=== PATIENT | male | born 2000 | race Caucasian/White ===

== ENCOUNTER 2019-09-30 23:29 | Inpatient (IN) ==
--- NOTE | 2019-09-30 23:36 | Emergency Department Note ---
ED Provider Note NAME: QUITA LIU AGE: 19 SEX: M ARRIVES VIA: [employer] INFORMANT: [Patient] ED PROVIDER(S): [Isabel Pfeiffer DO] CHIEF COMPLAINT: [Suicidal ideation with a plan to shoot himself] IMPRESSION: [Suicidal ideation] PLAN: Disposition: [Admitted voluntarily to 3 S.] Condition: [Good] Referral: [For admission to inpatient psychiatric care-3 S.] MEDICAL DECISION MAKING: The patient presents to the emergency department after making suicidal statements with a gesture that he was going to shoot himself. The patient had been drinking alcohol tonight. He was felt to medically cleared. He was evaluated by the ED psychiatric caser shoe parts. Triage Nursing notes reviewed and agree them. The police who petitioned a [phone]. [Prior medical records reviewed] Vital Signs: Were unremarkable Differential diagnosis: Alcohol intoxication, mood disorder, thought disorder, suicidal ideation, ER treatment provided: Medical clearance; evaluation and treatment for psychiatric care Diagnostics interpreted by me: ECG: [none] Cardiac Monitoring: [none] Laboratory studies: [See below] Imaging studies: [None] Consultation(s): ED psychiatric caser shoe parts HPI: This is a 19-year-old male patient who made suicidal threats tonight to friends stating that he was going to shoot himself. He sent text messages to friends of pictures of a gun. Police were contacted and they went to the patient's home. He admitted that he was suicidal and that he had plans to use his friend's 22 to shoot himself in the mouth. He was very depressed over the fact that his grandfather last night in his sleep from cardiac arrest. The patient explained to me that he was already depressed yesterday after visiting his other grandfather's grave. ROS: See above HPI for pertinent positives & negatives. A total of [10] systems reviewed and were otherwise negative. PAST MEDICAL HISTORY:He has a past medical history of inguinal hernia that has not yet been repaired SOCIAL HISTORY:Patient lives with roommates. He is a [place] but is currently unemployed. He does smoke tobacco. He does drink beer. HOME MEDICATIONS:[None] ALLERGIES:[None] VITALS:[See Below] PHYSICAL EXAMINATION: HEENT: Head - normocephalic and atraumatic Pupils are equal, round, and reactive to light. Extraocular eye muscles are intact, and sclera are anicteric. Nose - moist nasal mucosa without discharge. Mouth - moist buccal mucosa. Oropharynx is nonerythematous and there is no tonsillar exudate or edema noted. Neck: Supple; no JVD, nuchal rigidity, cervical lymphadenopathy, or auscultated bruits. Heart: Regular rate and rhythm. There is a normal S1 and S2 with no murmurs, clicks, or gallops appreciated. Lungs: Clear to auscultation bilaterally with no wheezes, rales, or rhonchi. Abdomen: Soft, completely nontender, nondistended, with good bowel sounds. There are no palpable pulsatile masses or hepatosplenomegaly. There is no guarding, rigidity, or rebound noted. Extremities: No evidence of cyanosis, clubbing, or edema. There are easily palpable peripheral pulses. Skin: warm and dry with good turgor and no rashes. Psych: Normal affect; the patient denies any history of depression but states that he feels depressed now and admits to feeling suicidal. ED COURSE: Times/Reassessments: The patient was evaluated in room A 8. A complete history and physical was performed. Labs were drawn as above. 1:00 the patient was felt to be medically cleared at this time. He was evaluated by the ED psychiatric caser shoe parts 1:35 I spoke with the patient and reviewed his laboratory studies. I discussed the case with the ED psychiatric caser shoe parts and the patient is willing to sign himself in voluntarily. A referral was made to 3 S. Impression & Plan Suicidal ideation Past Med/Surg History Social History (Updated 07/02/19 @ 11:53 by Chelle Amaya RN) Preferred Language: Portuguese Communication Ability: Effective Practice Architect Required: No Beliefs That Will Affect Care: None marital status: Single Current Living Situation: Other Current Living Situation Comment: with friends Feels Safe at Home: Yes Smoking Status: Current every day smoker Tobacco Type: cigarettes ; Cigarettes Per Day: vapes daily ; Second Hand Exposure: Yes ; Hx Alcohol Use: Yes Alcohol type: beer Hx Substance Use: No Results & Data Vital Signs Vital Signs - 24 hr 09/30/19 23:30 Temperature 36.6 C Temperature Source Oral Pulse Rate 112 H Respiratory Rate 16 Respiratory Effort / Characteristics Non-Labored Spontaneous Respiratory Depth Normal Blood Pressure 138/93 Blood Pressure Mean 108 Pulse Oximetry 98 Oxygen Delivery Method Room Air Sepsis Recent Fever Within 48 Hours No Sepsis New/Unexplained Change in Mental Status No Sepsis Action Taken by Nursing No Action Required Laboratory Data Result diagrams: 10/01/19 00:05 10/01/19 00:05 Lab Results 09/30/19 09/30/19 10/01/19 Range/Units 23:35 23:35 00:05 WBC 8.66 (4.8-10.8) K/uL RBC 5.00 (4.7-6.1) M/uL Hgb 15.3 (14.0-18.0) g/dL Hct 43.9 (42-52) % MCV 87.8 (80-100) fL MCH 30.6 (25-34) pg MCHC 34.9 (32-36) g/dL RDW Std Deviation 41.1 (36.4-46.3) fL RDW Coeff of Gala 12.9 (11.5-14.5) % Plt Count 354 (130-400) K/uL MPV 9.0 (7.4-10.4) fL Immature Gran % (Auto) 0.2 % Neut % (Auto) 64.8 % Lymph % (Auto) 27.3 % [place] % (Auto) 6.5 % Eos % (Auto) 0.9 % Baso % (Auto) 0.3 % Immature Gran # (Auto) 0.02 (0.00-0.02) K/uL Neut # (Auto) 5.61 (1.4-6.5) K/uL Lymph # (Auto) 2.36 (1.2-3.4) K/uL [place] # (Auto) 0.56 (0.11-0.59) K/uL Eos # (Auto) 0.08 (0-0.5) K/uL Baso # (Auto) 0.03 (0-0.2) K/uL Sodium (136-145) mmol/L Potassium (3.5-5.1) mmol/L Chloride (98-107) mmol/L Carbon Dioxide (21-32) mmol/L Anion Gap (3-11) BUN (7-18) mg/dl Creatinine (0.6-1.4) mg/dl Est Cr Clr Drug Dosing Est GFR ( Amer) Est GFR (Non-Af Amer) BUN/Creatinine Ratio (10-20) Glucose (70-99) mg/dl Calcium (8.5-10.1) mg/dl Total Bilirubin (0.2-1) mg/dl AST (15-37) U/L ALT (12-78) U/L Alkaline Phosphatase (45-117) U/L Total Protein (6.4-8.2) gm/dl Albumin (3.4-5.0) gm/dl Globulin (2.5-4.0) gm/dl Albumin/Globulin Ratio (0.9-2) TSH (0.300-4.500) uIu/ml Urine Color Yellow Urine Appearance Clear (Clear) Urine pH 6.5 (4.5-7.5) Ur Specific Mason 1.008 (1.000-1.030) Urine Protein Negative (Negative) Urine Glucose (UA) Negative (Negative) Urine Ketones 1+ H (Negative) Urine Blood Negative (Negative) Urine Nitrite Negative (Negative) Urine Bilirubin Negative (Negative) Urine Urobilinogen Negative (Negative) Ur Leukocyte Esterase Negative (Negative) Salicylates (2.8-20) mg/dl Urine Opiates Screen Neg (Neg) Ur Methadone, Qual Neg (Neg) Acetaminophen (10-30) ug/ml Urine Barbiturates Neg (Neg) Ur Phencyclidine (PCP) Neg (Neg) U Amphetamin/Meth Scrn Neg (Neg) MDMA (Ecstasy) Screen Neg (Neg) U Benzodiazepines Scrn Neg (Neg) Ur Cocaine Metabolite Neg (Neg) U Marijuana (THC) Screen Neg (Neg) Ethyl Alcohol mg/dL (0-3) mg/dl 10/01/19 10/01/19 10/01/19 Range/Units 00:05 00:05 00:05 WBC (4.8-10.8) K/uL RBC (4.7-6.1) M/uL Hgb (14.0-18.0) g/dL Hct (42-52) % MCV (80-100) fL MCH (25-34) pg MCHC (32-36) g/dL RDW Std Deviation (36.4-46.3) fL RDW Coeff of Gala (11.5-14.5) % Plt Count (130-400) K/uL MPV (7.4-10.4) fL Immature Gran % (Auto) % Neut % (Auto) % Lymph % (Auto) % [place] % (Auto) % Eos % (Auto) % Baso % (Auto) % Immature Gran # (Auto) (0.00-0.02) K/uL Neut # (Auto) (1.4-6.5) K/uL Lymph # (Auto) (1.2-3.4) K/uL [place] # (Auto) (0.11-0.59) K/uL Eos # (Auto) (0-0.5) K/uL Baso # (Auto) (0-0.2) K/uL Sodium 139 (136-145) mmol/L Potassium 4.2 (3.5-5.1) mmol/L Chloride 106 (98-107) mmol/L Carbon Dioxide 28 (21-32) mmol/L Anion Gap 5.0 (3-11) BUN 12 (7-18) mg/dl Creatinine 0.98 (0.6-1.4) mg/dl Est Cr Clr Drug Dosing Not Reportable Est GFR ( Amer) 127.2 Est GFR (Non-Af Amer) 109.8 BUN/Creatinine Ratio 11.9 (10-20) Glucose 103 H (70-99) mg/dl Calcium 9.7 (8.5-10.1) mg/dl Total Bilirubin 0.3 (0.2-1) mg/dl AST 10 L (15-37) U/L ALT 17 (12-78) U/L Alkaline Phosphatase 119 H (45-117) U/L Total Protein 8.5 H (6.4-8.2) gm/dl Albumin 4.9 (3.4-5.0) gm/dl Globulin 3.6 (2.5-4.0) gm/dl Albumin/Globulin Ratio 1.4 (0.9-2) TSH 1.220 (0.300-4.500) uIu/ml Urine Color Urine Appearance (Clear) Urine pH (4.5-7.5) Ur Specific Mason (1.000-1.030) Urine Protein (Negative) Urine Glucose (UA) (Negative) Urine Ketones (Negative) Urine Blood (Negative) Urine Nitrite (Negative) Urine Bilirubin (Negative) Urine Urobilinogen (Negative) Ur Leukocyte Esterase (Negative) Salicylates 3.5 (2.8-20) mg/dl Urine Opiates Screen (Neg) Ur Methadone, Qual (Neg) Acetaminophen < 2 L (10-30) ug/ml Urine Barbiturates (Neg) Ur Phencyclidine (PCP) (Neg) U Amphetamin/Meth Scrn (Neg) MDMA (Ecstasy) Screen (Neg) U Benzodiazepines Scrn (Neg) Ur Cocaine Metabolite (Neg) U Marijuana (THC) Screen (Neg) Ethyl Alcohol mg/dL 7.0 H (0-3) mg/dl Discharge Plan Visit Data Chief Complaint: Mental Health Evaluation Stated Complaint: MENTAL HEALTH EVAL ED Provider: Isabel Pfeiffer Discharge Problem: Suicidal ideation Discharge Instructions Interventions: ED Discharge Assessment Last Done: 10/01/19 02:57
[2019-10-01 00:04] LABS: Appearance Urine Clear (Clear); Bilirubin Urine Negative (Negative); Blood Urine Negative (Negative); Color Urine Yellow; Glucose Urine UA Negative (Negative); Ketones Urine 1+ (Negative); Leukocyte Esterase Urine Negative (Negative); Nitrite Urine Negative (Negative); Protein Urine Negative (Negative); Specific Gravity Urine 1.008 (1.000-1.030); Urobilinogen Urine Negative (Negative); pH Urine 6.5 (4.5-7.5)
[2019-10-01 00:18] LABS: Basophils # (auto) 0.03 K/uL (0-0.2); Basophils % (auto) 0.3 %; Eosinophils # (auto) 0.08 K/uL (0-0.5); Eosinophils % (auto) 0.9 %; Hematocrit (blood only) 43.9 % (42-52); Hemoglobin 15.3 g/dL (14.0-18.0); Immature Granulocytes # (auto) 0.02 K/uL (0.00-0.02); Immature Granulocytes % (auto) 0.2 %; Lymphocytes # (auto) 2.36 K/uL (1.2-3.4); Lymphocytes % (auto) 27.3 %; Mean Corpuscular Hemoglobin 30.6 pg (25-34); Mean Corpuscular Hgb Conc 34.9 g/dL (32-36); Mean Corpuscular Volume 87.8 fL (80-100); Monocytes # (auto) 0.56 K/uL (0.11-0.59); Monocytes % (auto) 6.5 %; Neutrophils # (auto) 5.61 K/uL (1.4-6.5); Neutrophils % (auto) 64.8 %; Platelet Count 354 K/uL (130-400); RDW Coefficient of Variation 12.9 % (11.5-14.5); RDW Standard Deviation 41.1 fL (36.4-46.3); White Blood Count 8.66 K/uL (4.8-10.8)
[2019-10-01 00:29] LABS: Amphetamines+Metham, Urine Neg (Neg); Barbiturates, Urine Neg (Neg); Benzodiazepine, Urine Neg (Neg); Cocaine, Urine Neg (Neg); MDMA (Ecstacy), Urine Neg (Neg); Methadone, Urine Neg (Neg); Opiate, Urine Neg (Neg); Phencyclidine, Urine Neg (Neg)
[2019-10-01 00:54] LABS: Alanine Aminotransferase 17 U/L (12-78); Albumin Level 4.9 gm/dl (3.4-5.0); Aspartate Aminotransferase 10 U/L (15-37); BUN Creatinine Ratio 11.9 (10-20); Blood Urea Nitrogen 12 mg/dl (7-18); Calcium 9.7 mg/dl (8.5-10.1); Carbon Dioxide 28 mmol/L (21-32); Chloride 106 mmol/L (98-107); Est GFR (African American) 127.2; Est GFR (Non-African American) 109.8; Glucose 103 mg/dl (70-99); Potassium 4.2 mmol/L (3.5-5.1); Sodium 139 mmol/L (136-145)
[2019-10-01 01:04] LABS: Albumin Globulin Ratio 1.4 (0.9-2); Alkaline Phosphatase 119 U/L (45-117); Bilirubin,Total 0.3 mg/dl (0.2-1); Globulin 3.6 gm/dl (2.5-4.0); Total Protein 8.5 gm/dl (6.4-8.2)
[2019-10-01 01:05] LABS: Acetaminophen < 2 ug/ml (10-30); Salicylate 3.5 mg/dl (2.8-20)
[2019-10-01] MEDS ORDERED: ALUMINUM/MAGNESIUM SUSP 30 ML UDC PO PRN (02:38)
[2019-10-01] MEDS ORDERED: MAGNESIUM HYDROXIDE SUSP 30 ML UDC PO PRN (02:38)
[2019-10-01] MEDS ORDERED: BISMUTH SUBSALICYLATE PER ML OMNICELL CHARGE PO PRN (02:38)
[2019-10-01] MEDS ORDERED: ACETAMINOPHEN 325 MG TAB PO PRN (02:38)
[2019-10-01] MEDS ORDERED: SODIUM CHLORIDE 0.65% NA SOLN 45 ML (OCEAN) PRN (02:38)
[2019-10-01] MEDS: NICOTINE 14 MG/24 HR PATCH TD SCH (09:55)
[2019-10-01] MEDS: NICOTINE POLACRILEX 2 MG GUM MT PRN ×3 (09:57→17:46)
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
[2019-10-02] MEDS: NICOTINE 14 MG/24 HR PATCH TD SCH (08:43)
[2019-10-02] MEDS: NICOTINE POLACRILEX 2 MG GUM MT PRN ×3 (08:44→17:55)
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
[2019-10-03] MEDS: NICOTINE 14 MG/24 HR PATCH TD SCH (08:47)
[2019-10-03] MEDS: NICOTINE POLACRILEX 2 MG GUM MT PRN ×2 (09:02→12:43)
[2019-10-03] MEDS ORDERED: FLUOXETINE HCL 10 MG CAP PO STA (12:07)
--- NOTE | 2019-10-03 13:23 | Discharge Summary ---
Date of Service October 03, 2019 History of Present Illness The patient is a 19-year-old man who was admitted through the emergency department earlier this morning after being referred there by his friend and roommate. The roommate expressed concern about the patient because the patient had been making its threats of self-harm over the past several days. The patient acknowledges that, in fact, he had been making threats, and does not dispute a reference to shooting himself with a friend's gun, but says that he had no real plan to act on these thoughts and, instead, was attempting to articulate his level of distress related to several recent circumstances. The patient's assertion is that he does not have any past psychiatric history. He specifically says that he has never seen a mental health professional, has never taken psychiatric medications, has never intentionally cause self-harm, and does not have a past history of depression. He does acknowledge that he may have some difficulty with attention deficit, but he feels that these symptoms are manageable. The patient attributes his distress to 3 circumstances. He reports that his depressed mood began precipitously 8 days ago when his fiance, who is also the mother of his 5-year-old son, abruptly told him that she was moving out of the residence that they had shared, but, according the patient, she also assured him that they were not ending their relationship. The patient feels that, perhaps contributing to his feelings of depression is the fact that he is currently unemployed (as a [place]) and has been struggling financially. Shortly after the patient's girlfriend moved out, the patient's maternal grandfather, a man with whom the patient had always been close, . Within this context, the patient had visited his other grandfather's grave shortly prior to presenting to the emergency room and experienced overwhelming feelings of sadness because he feels that he had not been able to say goodbye to either of the grandfathers.. The patient reports that he does not regularly misuse alcohol, nor does he ever use other chemical substance of abuse. However, he admits that before coming to the emergency room he had been drinking beer. His initial assertion that he had had "1 beer" was contradicted by the fact that in the emergency room, shortly after midnight, his blood alcohol level was 7.0 mg/dL, reportedly a number of hours after he had consumed the beer. The patient and acknowledges that it "may have been more." The time of the completion of the psychiatric admission examination the patient reported that he has spoken with his girlfriend by phone today and the 2 of decided to reconcile. The girlfriend also told him that she is currently with what will be their second child, although she was unable to tell him how many weeks she is. Patient tells us that this news has further bolstered his mood. Physical Exam Psychiatric at time of psychiatric discharge assessment Orientation: alert, oriented x 3 and cooperative Apperance: appropriately dressed, appropriately groomed and appeared stated age Eye Contact: good eye contact Motor Behavior: steady gait and station Speech: normal rate/rhythm/volume of speech Affect: euthymic affect Thought Process: goal directed thought process, linear/logical thought process and clear/coherent thought process Thought Content: reality based without delusions Suicidal Thoughts: denies suicidal thoughts and denies suicidal plan Homicidal Thoughts: denies homicidal thoughts Hallucinations: no auditory hallucinations and no visual hallucinations Cognition: recent memory grossly intact, remote memory grossly intact, attention grossly intact and language grossly intact Estimated Intelligence: average estimated intelligence Insight: + fair insight Judgement: + fair judgement (improved further and seeking therapy appts (individual and couples)) Vital Signs (Past 24 Hours) Last Vital Signs Temp 36.4 C L 10/03/19 12:15 Pulse 60 10/03/19 12:15 Resp 18 10/03/19 12:15 BP 126/74 10/03/19 12:15 Pulse Ox 97 10/03/19 12:15 Principal Diagnosis anxiety disorder , h/o ADHD Psychiatric Data Day of Discharge Assessment Pt is cooperative and engaging, and more open about his anxiety and emotional reactivity. He is not guarded. he is connecting his fears of abandonment stemming from his past to his anxiety tied to fears of rejection and how brings out anger when his fears are more triggered. He is seeking to address this with an outpt individual and outpt couples therapist. He is open to exploring this more in therapy and with his finance. He is open to working on how to handle his emotional reactivity and wanting to learn better coping skills> he aims to start with taking time outs when triggered instead of keeping the tension going. 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 He is without SI and is froward thinking. he is excited about his finance being and aims for them to find a place to live together shortly. He is wanting to quit smoking and wants to continue using the 7mg nicotnie patch and nicotine gum after discharge to help achieve this. We are aiming fro the tip line and for him to f/u with his PCP to continue addressing his smoking cessation. he declined Wellbutrin or Chantix at this time as wants to see how the nicotine replacement options work first. He denied depressive symptoms and feels up for handling his anxiety using cognitive and behavioral approaches including ones reviewed while on the unit. He is seeking discharge and is considered appropriate for discharge today. He was advise how ADHD (dx as a child) can impact impulse control with him not open to ADHD related medication at this time. Transition of Care Transition Of Care Record: was reviewed with the patient Advance Directives Advance Directives Information Provided: Yes Advance Directives: No Mental Health Advance Directive: No Advance Directives on File: No Living Will: No Power of Editor In [employer] Newspaper: No Advance Directives Reason:: Declines as Mental Health Visit. Risk Factors Assessment Male: Yes : Yes Do You Have Access To A Gun?: No (gun was secured and not at his residence ) Health Problems: No Mental Health Diagnoses: No Substance Use Disorders: No Previous Attempt: No Family History of Suicide: No Previous Psychiatric Hospitalization: No Hopelessness: No Smoker: Yes Protective Factors Assessment Temple Beliefs: No : No Responsible for Young Children: Yes Employed: No (Actively looking) Stable Relationships: Yes Supportive Family: Yes Good Rapport with Provider: No Absence of Any Risk Factors Above: No Tobacco Cessation at Discharge Tobacco Cessation Medication Prescribed at Discharge: Offered & Prescribed (nicotine replacement (patches) pt declined gum rx but likely to obtain OTC, tipline referral placed, declined wellbutrin or chantix ) Total Time Total Time Spent: Greater Than 30 Minutes Total Time Includes: Examination of the patient, Discharge Planning and Medication Reconciliation Discharge Data Lab Results 09/30/19 09/30/19 10/01/19 23:35 23:35 00:05 WBC 8.66 RBC 5.00 Hgb 15.3 Hct 43.9 MCV 87.8 MCH 30.6 MCHC 34.9 RDW Std Deviation 41.1 RDW Coeff of Gala 12.9 Plt Count 354 MPV 9.0 Immature Gran % (Auto) 0.2 Neut % (Auto) 64.8 Lymph % (Auto) 27.3 Ford % (Auto) 6.5 Eos % (Auto) 0.9 Baso % (Auto) 0.3 Immature Gran # (Auto) 0.02 Neut # (Auto) 5.61 Lymph # (Auto) 2.36 Ford # (Auto) 0.56 Eos # (Auto) 0.08 Baso # (Auto) 0.03 Sodium Potassium Chloride Carbon Dioxide Anion Gap BUN Creatinine Est Cr Clr Drug Dosing Est GFR ( Amer) Est GFR (Non-Af Amer) BUN/Creatinine Ratio Glucose Calcium Total Bilirubin AST ALT Alkaline Phosphatase Total Protein Albumin Globulin Albumin/Globulin Ratio TSH Urine Color Yellow Urine Appearance Clear Urine pH 6.5 Ur Specific [place] 1.008 Urine Protein Negative Urine Glucose (UA) Negative Urine Ketones 1+ H Urine Blood Negative Urine Nitrite Negative Urine Bilirubin Negative Urine Urobilinogen Negative Ur Leukocyte Esterase Negative Salicylates Urine Opiates Screen Neg Ur Methadone, Qual Neg Acetaminophen Urine Barbiturates Neg Ur Phencyclidine (PCP) Neg U Amphetamin/Meth Scrn Neg MDMA (Ecstasy) Screen Neg U Benzodiazepines Scrn Neg Ur Cocaine Metabolite Neg U Marijuana (THC) Screen Neg Ethyl Alcohol mg/dL 10/01/19 10/01/19 10/01/19 00:05 00:05 00:05 WBC RBC Hgb Hct MCV MCH MCHC RDW Std Deviation RDW Coeff of Gala Plt Count MPV Immature Gran % (Auto) Neut % (Auto) Lymph % (Auto) Ford % (Auto) Eos % (Auto) Baso % (Auto) Immature Gran # (Auto) Neut # (Auto) Lymph # (Auto) Ford # (Auto) Eos # (Auto) Baso # (Auto) Sodium 139 Potassium 4.2 Chloride 106 Carbon Dioxide 28 Anion Gap 5.0 BUN 12 Creatinine 0.98 Est Cr Clr Drug Dosing Not Reportable Est GFR ( Amer) 127.2 Est GFR (Non-Af Amer) 109.8 BUN/Creatinine Ratio 11.9 Glucose 103 H Calcium 9.7 Total Bilirubin 0.3 AST 10 L ALT 17 Alkaline Phosphatase 119 H Total Protein 8.5 H Albumin 4.9 Globulin 3.6 Albumin/Globulin Ratio 1.4 TSH 1.220 Urine Color Urine Appearance Urine pH Ur Specific [place] Urine Protein Urine Glucose (UA) Urine Ketones Urine Blood Urine Nitrite Urine Bilirubin Urine Urobilinogen Ur Leukocyte Esterase Salicylates 3.5 Urine Opiates Screen Ur Methadone, Qual Acetaminophen < 2 L Urine Barbiturates Ur Phencyclidine (PCP) U Amphetamin/Meth Scrn MDMA (Ecstasy) Screen U Benzodiazepines Scrn Ur Cocaine Metabolite U Marijuana (THC) Screen Ethyl Alcohol mg/dL 7.0 H Hospital Course (1) Suicidal ideation: 10/01/2019. -The patient has consistently reported that he is not suicidal, although he admits making suicidal threats prior to admission. He explains this by saying that he has just been "really upset" about the fact that his girlfriend moved out of the residence that they had shared (together with their 5-year-old son) and the fact that his grandfather had recently . He also reports that he has been financially strained because he is currently unemployed. -The patient was admitted to the [facility] behavioral health unit and has been referred for individual, group, and activity therapies. We will also attempt to involve his fiance in the treatment. The patient has been placed on suicide precautions and will be monitored closely during the continued stay. The patient is viraj for safety in the hospital and agrees to let us know if self-harm thoughts return. (2) Grief reaction: 10/01/19 -The patient reports that he is grieving the recent loss of his maternal grandfather. He says that his feelings about the grandfather's are comp licated by the fact that he did not have an opportunity to say goodbye to either of his grandfathers prior to their deaths, and a visit to his other grandfather's grave shortly before presenting to the emergency department triggered fairly strong feelings of loss. -The patient's grief reaction has been complicated by the fact that the patient had recently suffered a romantic disappointment when his fiance/the mother of his 5-year-old son moved out. (3) Adjustment disorder: 10/01/19 -The patient is having unexpected degree of difficulty coping with several psychosocial stressors including financial strain, a romantic disappointment, and the of his grandfather. The circumstances have led to anxious distress, and feelings of depression. -The patient reports that he is not abusing alcohol, but he also told us that he had only had "1 beer" prior to presenting in the emergency room, and shortly after midnight in the emergency department his blood alcohol level measured at 7.9 mg/dL. When this was pointed out to the patient, he revised his alcohol consumption amount. He has been advised that using alcohol as a coping mechanism when under stress is to be strongly discouraged. -The goal of this hospitalization will be to improve the patient's individual coping strategies, particularly in improving the way the patient communicates distress to his friends and family. -We have talked the patient about continued individual counseling following discharge. The patient says that he feels that he will be able to cope and is not interested in individual therapy. We are not recommending psychiatric medications at this time. 10/01 - referring for outpt therapy appts for individual and couples therapy family meeting with gf occurred today gun secured and out of the house Mental Health & Subst Abuse Tx Therapist Name of Therapist: Denies/None Therapy Appointment Comment: Patient initially refused, now willing to explore. Information given Therapist Release of Information: Obtained, Reviewed and Signed River Expedition Guide Name of River Expedition Guide: . Post Discharge Appointments Primary Care Physician Name Of Family Doctor: Trinity Linares MD Primary Care Provider Appointment Comment: [address], [address], [place] [address] Primary Care Release of Information: Obtained, Reviewed and Signed Smoking Cessation Counseling Tobacco Cessation Medication Prescribed at Discharge: Offered & Prescribed (nicotine replacement (patches) pt declined gum rx but likely to obtain OTC, tip line referral placed, declined wellbutrin or chantix ) Tobacco Cessation Counseling: Referral Faxed Discharge Plan Discharge Items Patient Disposition: Home - Self-Care Reason For Visit: DEPRESSION, SI Activity: Resume your previous activity Non-emergency contact: Primary Care Provider and Therapist Call non-emergency contact if: you have any medication questions and your symptoms worsen Follow-up/Referrals: Trinity Linares [Primary Care Provider] - Diet: Regular Addtl Attending Provider Instructions: SPECIAL CARE INSTRUCTIONS: 1. Follow through with your scheduled aftercare appointments. If unable to keep an appointment, please call to reschedule. 2. Take your medication only as prescribed. Medication should not be changed or stopped without the approval of your doctor. In the event of worsening symptoms or concerns about side effects, contact your doctor immediately. 3. Utilize new healthy coping skills, anger management skills, and stress management skills learned during your hospitalization. Journal feelings and process them with a support person. Identify stressors or situations that may result in relapse, deterioration or inappropriate behaviors and develop a plan to deal with those issues. 4. If your coping skills are ineffective and you are in crisis, contact your outpatient providers for direction. If unable to reach your providers, please call the CAN HELP LINE AT or go to the closest Emergency Room. 5. Avoid alcohol and un-prescribed drugs. 6. You have been provided with the Mental Health Advance Directives Pamphlet for your review. AFTERCARE APPOINTMENTS: * Please call your insurance company prior to your scheduled appointment to confirm your aftercare providers are covered. Take your insurance information to your appointments. WHO TO CALL AND WHEN: Medical Emergencies: For questions or emergencies related to your hospital stay, please contact the Inpatient Behavioral Health Unit at [phone]. A licensed clinician is on-call 10/02 for the Behavioral Health Unit for emergencies At any time you feel your situation is an emergency, you may also call 911 immediately. Your Doctors Instructions noted above were prepared by provider Bradley Horton MD. Pending Studies at Discharge: No Stand-Alone Forms: My [facility] [employer]SI Semi Conductors, Smoking Cessation, Suicide Prevention Resources Medications and DC Order Prescriptions: New nicotine 7 mg/24 hr Patch 24 Hour 14 mg transdermal QAM 28 Days Qty: 2 RF: 0 No Action No Known Home Medications RF: 0 Discharge Orders: Discharge Order (Routine); Ordered 10/03/19 Ordered By: Bradley Horton Admission Data Admit Date/Time: 10/01/19 02:38 Attending Provider: Willard Pop Admit Provider: Bradley Horton I. Primary Care Provider: Trinity Linares Other Interventions: Discharge Summary Assessment (RN) Last Done: 10/03/19 12:15 PSY Interdisciplinary Discharge Planning Last Done: 10/03/19 12:30 DC Date/Time DO NOT enter until pt leaves facility: 10/03/19 13:09 Coding Level of Care Code 04577 D/C day mgmt > 30 min Diagnoses Suicidal ideation R45.851 Grief reaction F43.21 Adjustment disorder F43.20
[2019-10-04] MEDS ORDERED: FLUOXETINE HCL 20 MG CAP PO SCH (09:00)
== END 2019-10-03 13:09 | disposition home or self-care (01) | DRG 880 ==
LOC: ED 23:29 → 3S 10-01 02:38